=== PATIENT | female | born 1965 | race Caucasian/White ===

== ENCOUNTER 2017-09-08 08:48 | Emergency (ER) | payer OTHER ==
[2017-09-08 09:19] VITALS: BP 141/68
--- NOTE | 2017-09-08 10:28 | UC ---
Respiratory Complaint HPI - HPI Summary HPI Summary: Per sales manager "SORE THROAT, BILAT EARACHE, FEVER AND HEADACHE X3 DAYS. DENIES COUGH BUT STATES SHE'S PRODUCING ALOT OF MUCOUS. STATES SX GETTING WORSE AND UNABLE TO SWALLOW NOW D/T PAIN. TAKING TYLENOL PRN W/ NO RELIEF. CAN'T TAKE IBUPROFEN BC PT TAKING DICLOFENAC AND NO MUCINEX D/T ALLERGY." She is here with her . Dtr's bridal shower is today. significant ear pain , sinus pain. + PND. pain in upper back and neck as well. felt feverish but doesnt have a thermometer. - History of Current Complaint Chief Complaint: UCEar Stated Complaint: EARS/THROAT PAIN Time Seen by Provider: 09/08/17 10:13 - Allergies/Home Medications Allergies/Adverse Reactions: Allergies Allergy/AdvReac Type Severity Reaction Status Date / Time Dextromethorphan Allergy Severe Swelling Verified 09/08/17 09:05 [From Mucinex DM] Of Face,Lips,& Throat Guaifenesin [From Mucinex DM] Allergy Severe Swelling Verified 09/08/17 09:05 Of Face,Lips,& Throat Yellow Dye [From Mucinex DM] Allergy Severe Swelling Verified 09/08/17 09:05 Of Face,Lips,& Throat Home Medications: Home Medications Diclofenac [Zorvolex] 75 mg BID 09/08/17 [History Confirmed 09/08/17] Divalproex DR TAB(*) [Depakote DR TAB(*)] 500 mg QPM 09/08/17 [History Confirmed 09/08/17] Furosemide TAB* [Lasix TAB*] 40 mg DAILY 09/08/17 [History Confirmed 09/08/17] Levothyroxine TAB* [Synthroid 137 MCG TAB*] 137 mcg QAM 09/08/17 [History Confirmed 09/08/17] [place] Carbonate TAB* 1 tab BID 09/08/17 [History Confirmed 09/08/17] Potassium Chlor TAB* [Klor Con ER TAB 10 MEQ*] 1 tab DAILY 09/08/17 [History Confirmed 09/08/17] PMH/Surg Hx/FS Hx/Imm Hx Endocrine History: Hypothyroidism - Surgical History Surgical History: Yes Surgery Procedure, Year, and Place: LEFT thighx4-nola placed-. C-sectionx2. Hysterectomy - Family History Known Family History: Positive: Hypertension - Social History Alcohol Use: Occasionally Substance Use Type: None Smoking Status (MU): Never Smoked Tobacco - Immunization History Most Recent Influenza Vaccination: JUL 2017 Review of Systems Constitutional: Fever, Chills Skin: Negative Eyes: Negative ENT: Dental Pain, Sore Throat, Ear Ache, Nasal Discharge, Sinus Congestion, Sinus Pain/Tenderness Respiratory: Negative Cardiovascular: Negative Gastrointestinal: Negative Genitourinary: Negative Motor: Negative Neurovascular: Negative Musculoskeletal: Arthralgia, Other: - upper backl b/l and neck Neurological: Negative Psychological: Negative 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 tonsils surgically absent , Nasal congestion, TM bulging - right, left is nml., TM red, Other: - B/L maxillary and frontal tenderness b/l Dental Exam: Normal Neck exam: Normal Neck: Positive: Supple, Nontender, No Lymphadenopathy Respiratory Exam: Normal Respiratory: Positive: Lungs clear, Normal breath sounds, No respiratory distress, No accessory muscle use. Negative: Crackles, Rhonchi, Stridor, Wheezing Cardiovascular Exam: Normal Cardiovascular: Positive: RRR, No Murmur, Pulses Normal, Brisk Capillary Refill Abdomen Description: Positive: Nontender, Soft Musculoskeletal Exam: Normal Neurological Exam: Normal Psychological Exam: Normal Skin Exam: Normal Diagnostic Evaluation - Laboratory O2 Sat by Pulse Oximetry: 99 Respiratory Course/Dx - Differential Dx/Diagnosis Differential Diagnosis/HQI/PQRI: Bronchitis, Laryngitis, Lower Resp Infection, Sinusitis Provider Diagnoses: sinuistis, Rt OM Discharge - Discharge Plan Condition: Stable Disposition: HOME Prescriptions: Amoxicillin PO (*) [Amoxicillin 875 MG (*)] 875 mg PO BID #20 tab Patient Education Materials: Sinusitis (ED), Otitis Media (ED) Referrals: User,Conversion [Primary Care Provider] - Additional Instructions: Make sure to take a probiotic daily while on antibiotics to help prevent a potential complication of antibiotic use called c diff. Some well known brands that can be found OTC are florastor, [employer] and [employer]. Make sure to complete the entire prescription unless advised otherwise by your health care provider. Tylenol can be helpful. I also reviewed some stretches to help relieve the neck and upper back pain. Steroid nasal spray called flonase is OTC and can be helpful along with a humidifier.
== END 2017-09-08 10:36 | disposition home or self-care (01) ==
LOC: UCCORT 08:48
DX: J32.9 Chronic sinusitis, unspecified (principal); H66.93 Otitis media, unspecified, bilateral
CPT/HCPCS: 87651; 99202; G0463

== ENCOUNTER 2018-09-25 14:36 | Emergency (ER) | payer OTHER ==
[2018-09-25 15:06] VITALS: BP 152/78
--- NOTE | 2018-09-25 15:59 | UC ---
Dizzy HPI HPI Summary: 53-year-old woman comes in with a chief complaint of neck pain and dizziness. 4 days ago she woke up with the right sided neck pain. The neck pain is increased in intensity and is spread up into her right occiput's. 2 days ago she started becoming off-balance. Denies any spinning with dizziness. Also feels her right eye is blurry. No weakness or numbness. She is also now nauseous. NO Difficulty with speech. The neck pain has increased to 7 out of 10. She does have tramadol and that is not helping at all. Movement makes the neck pain worse. - History Of Current Complaint Chief Complaint: UCHeadache Stated Complaint: NECK/HEAD/SHOULDER/EAR PAIN Time Seen by Provider: 09/25/18 15:12 Pain Intensity: 7 - Allergies/Home Medications Allergies/Adverse Reactions: Allergies Allergy/AdvReac Type Severity Reaction Status Date / Time dextromethorphan Allergy Swelling Verified 09/25/18 14:57 [From Mucinex DM] Of Face,Lips,& Throat guaifenesin [From Mucinex DM] Allergy Swelling Verified 09/25/18 14:57 Of Face,Lips,& Throat Home Medications: Home Medications Fluticasone NASAL SPRAY 50MCG* [Flonase NASAL SPRAY 50MCG*] 1 spray INH ONCE PRN 09/25/18 [History Confirmed 09/25/18] Loratadine/Pseudoephedrine [Claritin-D 12 Hour Tablet] 1 tab PO DAILY PRN [History Confirmed 09/25/18] Melatonin 1 mg PO QPM 09/25/18 [History Confirmed 09/25/18] Tramadol HCl 50 mg PO ONCE PRN 09/25/18 [History Confirmed 09/25/18] PMH/Surg Hx/FS Hx/Imm Hx Endocrine History: Hypothyroidism - Surgical History Surgical History: Yes Surgery Procedure, Year, and Place: LEFT thighx4-nola placed-. C-sectionx2. Hysterectomy. left ear surgery 2010 - Family History Known Family History: Positive: Hypertension - Social History Alcohol Use: Occasionally Substance Use Type: None Smoking Status (MU): Never Smoked Tobacco - Immunization History Most Recent Influenza Vaccination: JUL 2017 Review of Systems Constitutional: Negative Skin: Negative Eyes: Blurred Vision ENT: Negative Respiratory: Negative Cardiovascular: Negative Gastrointestinal: Negative Motor: Decreased ROM - LEFT LEG IS CHRONIC Neurovascular: Negative Musculoskeletal: Other: - CHRONIC LEFT LEG WEAKNESS Neurological: Headache, Other - OFF BALANCE Psychological: Negative Is Patient Immunocompromised?: No All Other Systems Reviewed And Are Negative: Yes Physical Exam Triage Information Reviewed: Yes Appearance: Well-Appearing, Well-Nourished, Pain Distress - MILD, WORSE WITH HEAD MOVEMENT Vital Signs: Initial Vital Signs Temp 99.7 F 09/25/18 14:50 Pulse 93 09/25/18 14:50 Resp 18 09/25/18 14:50 BP 152/78 09/25/18 14:50 Pulse Ox 96 09/25/18 14:50 Vital Signs Reviewed: Yes Eye Exam: Normal Eyes: Positive: Conjunctiva Clear ENT: Positive: Other - LEFT TM NL RT TM BULGING WITH WHITE MATTER BEHIND IT. Negative: Nasal congestion, Nasal drainage Neck: Positive: Other: - Tender to palpation to the right of the spinous processes. There is no rash. This pain with any range of motion. Respiratory: Positive: Lungs clear, Normal breath sounds, No respiratory distress Cardiovascular: Positive: RRR Musculoskeletal: Positive: Other: - Through her is no facial droop. Arms have full strength finger-nose is normal. Patient is unable to do [id number] due to the chronic left leg weakness. There is no nystagmus. Neurological: Positive: Other: - Chronic left leg weakness Psychological Exam: Normal Psychological: Positive: Age Appropriate Behavior Skin Exam: Normal Dizzy Course/Dx - Course Course Of Treatment: Patient's RIGHT SIDED neck pain started 4 days ago and spread into the right occiput. In the last 2 days she started to feel off balance and nauseous. On examination her right eardrum does appear to be an otitis media. She has had ear surgery on that side so it could be scar tissue. Potential is that she has a right otitis media and has vertigo because of the otitis media. However she has no nystagmus and she describes being off balance rather than spending dizziness. Potential the neck pain is musculoskeletal from strain however with combined with the feeling off balance the potential for vertebral artery dissection is present. I told this to the patient and I recommended that she go to the emergency department. She declined a blistering report will go by private car. I discussed this with the Bella. - Differential Dx/Diagnosis Provider Diagnoses: RIGHT SIDED NECK PAIN. DIZZINESS. RT OTITIS MEDIA Discharge - Sign-Out/Discharge Documenting (check all that apply): Patient Departure All imaging exams completed and their final reports reviewed: No Studies - Discharge Plan Condition: Stable Disposition: HOME-RECOMMEND TO ED Prescriptions: Amoxicillin/Clavulanate TAB* [Augmentin TAB 875*] 875 mg PO BID #20 tab HYDROcodone/ACETAMIN 5-325 MG* [[place] 5-325 TAB*] 1 tab PO Q4H PRN #20 tab MDD 6 PRN Reason: Pain Meclizine HCl [Motion Sickness Relief] 25 mg PO Q6H PRN #15 tablet PRN Reason: Dizziness Patient Education Materials: Ear Infection (ED), Dizziness (ED), Acute Neck Pain (ED) Referrals: Kranthi Thacker MD [Primary Care Provider] - Additional Instructions: GO DIRECTLY TO THE EMERGENCY DEPARTMENT FOR FURTHER EVALUATION. - Billing Disposition and Condition Condition: STABLE Disposition: Home-Recommend to ED
== END 2018-09-25 16:23 | disposition home health service (06) ==
LOC: UCEAST 14:36
DX: M54.2 Cervicalgia (principal); R42 Dizziness and giddiness; H66.91 Otitis media, unspecified, right ear
CPT/HCPCS: 99212; G0463

== ENCOUNTER 2018-09-25 16:42 | Emergency (ER) | payer OTHER ==
[2018-09-25 18:18] LABS: ABS Basophils 0.1 10^3/ul (0-0.2); ABS Eosinophils 0.1 10^3/ul (0-0.6); ABS Lymphocytes 2.4 10^3/ul (1.0-4.8); ABS Monocytes 0.9 10^3/ul (0-0.8); ABS Neutrophils 7.6 10^3/ul (1.5-7.7); ABS Nucleated RBC 0 10^3/ul; Eosinophil % 1.2 % (0-6); Hematocrit 42 % (35-47); Hemoglobin 14.4 g/dl (12.0-16.0); Lymphocyte % 21.6 % (25-47); Mean Corpuscular HGB Conc 34 g/dl (31-36); Mean Corpuscular Hemoglobin 30 pg (27-31); Mean Corpuscular Volume 87 fL (80-97); Nucleated Red Blood Cells % 0; Platelet Count 221 10^3/ul (150-450); Red Blood Count 4.84 10^6/ul (4.00-5.40); Red Cell Distribution Width 13 % (10.5-15); White Blood Count 11.1 10^3/ul (3.5-10.8)
[2018-09-25 18:39] LABS: EGFR Non-African American 67.2 (>60)
[2018-09-25] MEDS ORDERED: Iohexol 350* (CONTRAST) 500 ML MDV IV ONE (19:01)
--- NOTE | 2018-09-25 19:28 | ED ---
Dizziness - HPI Summary HPI Summary: 53-year-old female presents with neck pain and dizziness for past 4 days. She states it started with right-sided of her neck. She states it radiate up to her head. Also states she's been very dizzy. She admits to some decrease in hearing in ear. She admits to sinus congestion. She did have 1 episode of blurry vision that has resolved. No weakness or numbness or tingling into her arms. No new injury injury. No fevers. No loss of bowel or bladder. Pain does not go down her back. No chest pressure or shortness breath. She never had this before. She states she just feels very wobbly. Does not feel like dizzy to one side. She states though she may be due to the fact that she has a prosthesis on right side. She denies any nausea vomiting. No difficulties with speech. She's been using tramadol which has not helped. Movement makes the neck pain worse. - History Of Current Complaint Chief Complaint: EDHeadache Stated Complaint: NECK AND SHOULDER PAIN Time Seen by Provider: 09/25/18 17:48 - Allergies/Home Medications Allergies/Adverse Reactions: Allergies Allergy/AdvReac Type Severity Reaction Status Date / Time dextromethorphan Allergy Swelling Verified 09/25/18 14:57 [From Mucinex DM] Of Face,Lips,& Throat guaifenesin [From Mucinex DM] Allergy Swelling Verified 09/25/18 14:57 Of Face,Lips,& Throat PMH/Surg Hx/FS Hx/Imm Hx Endocrine/Hematology History: Reports: Hx Thyroid Disease Denies: Hx Diabetes Cardiovascular History: Denies: Hx Hypertension History: Denies: Hx Renal Disease - Cancer History Cancer Type, 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 C-sectionx2. Hysterectomy. left ear surgery 2010 Infectious Disease History: No Infectious Disease History: Denies: Traveled Outside the [place] in Last 30 Days - Family History Known Family History: Positive: Hypertension - Social History Alcohol Use: Occasionally Substance Use Type: Reports: None Smoking Status (MU): Never Smoked Tobacco Review of Systems Negative: Fever Negative: Chest Pain Negative: Shortness Of Breath Positive: Myalgia - right side neck pain Neurological: Other - dizziness Positive: Headache All Other Systems Reviewed And Are Negative: Yes Physical Exam Triage Information Reviewed: Yes Vital Signs On Initial Exam: Initial Vitals Temp Pulse Resp BP Pulse Ox 99.5 F 93 15 161/84 97 09/25/18 16:44 09/25/18 16:44 09/25/18 16:44 09/25/18 16:44 09/25/18 16:44 Vital Signs Reviewed: Yes Appearance: Positive: Well-Appearing Skin: Positive: Warm, Dry Head/Face: Positive: Normal Head/Face Inspection Eyes: Positive: Normal, EOMI, TAMMY, Conjunctiva Clear, Other: - nystagmus present ENT: Positive: Normal ENT inspection, Pharynx normal, TMs normal Respiratory/Lung Sounds: Positive: Clear to Auscultation, Breath Sounds Present Cardiovascular: Positive: Normal, RRR Musculoskeletal: Positive: Normal Neurological: Positive: Sensory/Motor Intact, Alert, Oriented to Person Place, Time, CN Intact II-III, Normal Gait, Finger to Nose Psychiatric: Positive: Normal Diagnostics - Vital Signs Vital Signs Temp Pulse Resp BP Pulse Ox 09/25/18 16:44 99.5 F 93 15 161/84 97 - Laboratory Lab Results: Lab Results 09/25/18 09/25/18 09/25/18 Range/Units 18:07 18:07 18:07 WBC 11.1 H (3.5-10.8) 10^3/ul RBC 4.84 (4.00-5.40) 10^6/ul Hgb 14.4 (12.0-16.0) g/dl Hct 42 (35-47) % MCV 87 (80-97) fL MCH 30 (27-31) pg MCHC 34 (31-36) g/dl RDW 13 (10.5-15) % Plt Count 221 (150-450) 10^3/ul MPV 9.0 (7.4-10.4) um3 Neut % (Auto) 68.7 (38-83) % Lymph % (Auto) 21.6 L (25-47) % [place] % (Auto) 7.7 H (0-7) % Eos % (Auto) 1.2 (0-6) % Baso % (Auto) 0.8 (0-2) % Absolute Neuts (auto) 7.6 (1.5-7.7) 10^3/ul Absolute Lymphs (auto) 2.4 (1.0-4.8) 10^3/ul Absolute Monos (auto) 0.9 H (0-0.8) 10^3/ul Absolute Eos (auto) 0.1 (0-0.6) 10^3/ul Absolute Basos (auto) 0.1 (0-0.2) 10^3/ul Absolute Nucleated RBC 0 10^3/ul Nucleated RBC % 0 APTT 36.1 (26.0-36.3) seconds Sodium 137 (135-145) mmol/L Potassium 4.1 (3.5-5.0) mmol/L Chloride 101 (101-111) mmol/L Carbon Dioxide 27 (22-32) mmol/L Anion Gap 9 (2-11) mmol/L BUN 18 (6-24) mg/dL Creatinine 0.88 (0.51-0.95) mg/dL Est GFR ( Amer) 81.3 (>60) Est GFR (Non-Af Amer) 67.2 (>60) BUN/Creatinine Ratio 20.5 H (8-20) Glucose 92 (70-100) mg/dL Lactic Acid (0.5-2.0) mmol/L Calcium 10.1 (8.6-10.3) mg/dL Magnesium (1.9-2.7) mg/dL Total Bilirubin 0.50 (0.2-1.0) mg/dL AST 16 (13-39) U/L ALT 15 (7-52) U/L Alkaline Phosphatase 82 (34-104) U/L Troponin I (<0.04) ng/mL Total Protein 8.1 (6.4-8.9) g/dL Albumin 4.9 (3.2-5.2) g/dL Globulin 3.2 (2-4) g/dL Albumin/Globulin Ratio 1.5 (1-3) TSH (0.34-5.60) mcIU/mL 09/25/18 09/25/18 Range/Units 18:07 18:07 WBC (3.5-10.8) 10^3/ul RBC (4.00-5.40) 10^6/ul Hgb (12.0-16.0) g/dl Hct (35-47) % MCV (80-97) fL MCH (27-31) pg MCHC (31-36) g/dl RDW (10.5-15) % Plt Count (150-450) 10^3/ul MPV (7.4-10.4) um3 Neut % (Auto) (38-83) % Lymph % (Auto) (25-47) % [place] % (Auto) (0-7) % Eos % (Auto) (0-6) % Baso % (Auto) (0-2) % Absolute Neuts (auto) (1.5-7.7) 10^3/ul Absolute Lymphs (auto) (1.0-4.8) 10^3/ul Absolute Monos (auto) (0-0.8) 10^3/ul Absolute Eos (auto) (0-0.6) 10^3/ul Absolute Basos (auto) (0-0.2) 10^3/ul Absolute Nucleated RBC 10^3/ul Nucleated RBC % APTT (26.0-36.3) seconds Sodium (135-145) mmol/L Potassium (3.5-5.0) mmol/L Chloride (101-111) mmol/L Carbon Dioxide (22-32) mmol/L Anion Gap (2-11) mmol/L BUN (6-24) mg/dL Creatinine (0.51-0.95) mg/dL Est GFR ( Amer) (>60) Est GFR (Non-Af Amer) (>60) BUN/Creatinine Ratio (8-20) Glucose (70-100) mg/dL Lactic Acid 1.1 (0.5-2.0) mmol/L Calcium (8.6-10.3) mg/dL Magnesium 2.2 (1.9-2.7) mg/dL Total Bilirubin (0.2-1.0) mg/dL AST (13-39) U/L ALT (7-52) U/L Alkaline Phosphatase (34-104) U/L Troponin I 0.00 (<0.04) ng/mL Total Protein (6.4-8.9) g/dL Albumin (3.2-5.2) g/dL Globulin (2-4) g/dL Albumin/Globulin Ratio (1-3) TSH 2.53 (0.34-5.60) mcIU/mL Result Diagrams: 09/25/18 18:07 09/25/18 18:07 Lab Statement: Any lab studies that have been ordered have been reviewed, and results considered in the medical decision making process. - CT brain CT Interpretation Completed By: Radiologist Summary of CT Findings: no acute pathology cta CT Interpretation Completed By: Radiologist Summary of CT Findings: normal neck CTA - EKG No standard instances Cardiac Rate: NL EKG Rhythm: Sinus Rhythm Summary of EKG Findings: sinus rhythm Re-Evaluation - Re-Evaluation First Eval Change: Improved Comment: less dizzy after meclizine Dizzy Course/Dx - Course Course Of Treatment: 53-year-old female presents with neck pain and dizziness for past 4 days. She states it started with right-sided of her neck. She states it radiate up to her head. Also states she's been very dizzy. She admits to some decrease in hearing in ear. She admits to sinus congestion. She did have 1 episode of blurry vision that has resolved. No weakness or numbness or tingling into her arms. No new injury injury. No fevers. No loss of bowel or bladder. Pain does not go down her back. No chest pressure or shortness breath. She never had this before. She states she just feels very wobbly. Does not feel like dizzy to one side. She states though she may be due to the fact that she has a prosthesis on right side. She denies any nausea vomiting. No difficulties with speech. She's been using tramadol which has not helped. Movement makes the neck pain worse. On exam normal neuro exam. Right ear shows otitis media. pos HINTS test. CT brain normal. CTA neck and head normal. could be dizzy due to ear infection. will treat nexk pain as muscular with muscle relaxer and lidocaine patch. told to follow up with primary. patient understand and agrees with plan. - Diagnoses Differential Diagnosis/HQI/PQRI: CVA, Labyrinthitis, Other - sprain Provider Diagnoses: Neck pain Discharge - Sign-Out/Discharge Documenting (check all that apply): Patient Departure - Discharge Plan Condition: Good Disposition: HOME Prescriptions: Cyclobenzaprine TAB* [Flexeril 10 MG TAB*] 10 mg PO TID PRN #12 tab PRN Reason: Pain Lidocaine PATCH 5%* [Lidoderm 5% Patch*] 1 patch TRANSDERM DAILY #5 patch Patient Education Materials: Neck Pain (ED) Referrals: Kranthi Thacker MD [Primary Care Provider] - Additional Instructions: Take muscle relaxers three times a day Apply lidocaine patches to area for up to 12 hours in one 24 hour period Use Tylenol for pain every 6 hours ice/heat area, move as much as possible Follow up with primary within 5 days Return to ED if develop any new or worsening symptoms - Billing Disposition and Condition Condition: GOOD Disposition: Home
[2018-09-25] MEDS ORDERED: Meclizine TAB* 12.5 MG PO ONE (19:54)
--- NOTE | 2018-09-25 20:35 | RAD ---
EXAM: CT Head Without Intravenous Contrast EXAM DATE/TIME: 09/25/2018 8:07 PM CLINICAL HISTORY: 53 years old, female; Pain; Headache; Headache not specified TECHNIQUE: Axial computed tomography images of the head/brain without intravenous contrast. All CT scans at this facility use at least one of these dose optimization techniques: automated exposure control; mA and/or kV adjustment per patient size (includes targeted exams where dose is matched to clinical indication); or iterative reconstruction. COMPARISON: No relevant prior studies available. FINDINGS: Brain: Mild periventricular and subcortical low attenuation without adjacent mass effect. No acute ischemic changes, extra axial fluid collections, intraparenchymal hemorrhage, or midline shift. Ventricles: Normal. No ventriculomegaly. Bones/joints: Normal. No acute fracture. Sinuses: Normal as visualized. No acute sinusitis. Mastoid air cells: Normal as visualized. No mastoid effusion. Soft tissues: Normal. IMPRESSION: 1. No acute intracranial abnormality. 2. Mild chronic small vessel ischemic disease. To contact [facility] with a general question: [facility] - [phone] For direct physician to physician contact: Physician Hotline - [phone] [facility] ([facility] Facility ID #[id number])
--- NOTE | 2018-09-25 21:13 | RAD ---
EXAM: CT Angiography Head With Intravenous Contrast EXAM DATE/TIME: 09/25/2018 8:16 PM CLINICAL HISTORY: 53 years old, female; Pain; Headache; Additional info: Right sided neck pain, dizziness TECHNIQUE: Axial computed tomographic angiography images of the head with intravenous contrast using CT angiography protocol. All CT scans at this facility use at least one of these dose optimization techniques: automated exposure control; mA and/or kV adjustment per patient size (includes targeted exams where dose is matched to clinical indication); or iterative reconstruction. Coronal and sagittal reformatted images were created and reviewed. MIP reconstructed images were created and reviewed. CONTRAST: 40 ml of [id number] administered intravenously. COMPARISON: BRAIN WO CT BRAIN WO 09/25/2018 8:05 PM FINDINGS: Right internal carotid artery: Normal. Intracranial segment is patent with no significant stenosis. No aneurysm. Right anterior cerebral artery: Normal. No occlusion or significant stenosis. No aneurysm. Right middle cerebral artery: Normal. No occlusion or significant stenosis. No aneurysm. Right posterior cerebral artery: Normal. No occlusion or significant stenosis. No aneurysm. Right vertebral artery: Normal. No occlusion or significant stenosis. No aneurysm. Left internal carotid artery: Normal. Intracranial segment is patent with no significant stenosis. No aneurysm. Left anterior cerebral artery: Normal. No occlusion or significant stenosis. No aneurysm. Left middle cerebral artery: Normal. No occlusion or significant stenosis. No aneurysm. Left posterior cerebral artery: Normal. No occlusion or significant stenosis. No aneurysm. Left vertebral artery: Normal. No occlusion or significant stenosis. No aneurysm. Basilar artery: Normal. No occlusion or significant stenosis. No aneurysm. HEAD: Brain: No acute ischemic changes, extra axial fluid collections, intraparenchymal hemorrhage, or midline shift. No abnormal brain enhancement. IMPRESSION: Normal head CTA. EXAM: CT Angiography Neck With Intravenous Contrast EXAM DATE/TIME: 09/25/2018 8:16 PM CLINICAL HISTORY: 53 years old, female; Pain; Headache; Additional info: Right sided neck pain, dizziness TECHNIQUE: Axial computed tomographic angiography images of the neck with intravenous contrast using CT angiography protocol. All CT scans at this facility use at least one of these dose optimization techniques: automated exposure control; mA and/or kV adjustment per patient size (includes targeted exams where dose is matched to clinical indication); or iterative reconstruction. Coronal and sagittal reformatted images were created and reviewed. MIP reconstructed images were created and reviewed. CONTRAST: 40 ml of [id number] administered intravenously. COMPARISON: BRAIN WO CT BRAIN WO 09/25/2018 8:05 PM FINDINGS: VASCULATURE: Right common carotid artery: Normal. No significant stenosis. No dissection or occlusion. Right internal carotid artery: Normal. Extracranial segment is patent with no significant stenosis. No dissection or occlusion. Right external carotid artery: Normal. No occlusion or significant stenosis. Right vertebral artery: Normal. No significant stenosis. No dissection or occlusion. Left common carotid artery: Normal. No significant stenosis. No dissection or occlusion. Left internal carotid artery: Normal. Extracranial segment is patent with no significant stenosis. No dissection or occlusion. Left external carotid artery: Normal. No occlusion or significant stenosis. Left vertebral artery: Normal. No significant stenosis. No dissection or occlusion. NECK: Bones/joints: No acute fracture. Soft tissues: Normal. No significant soft tissue swelling. IMPRESSION: Normal neck CTA. COMMENT: Degree of carotid stenosis was determined using NASCET criteria. Mild: <50% stenosis. Moderate: 50-69% stenosis. Severe: 70-94% stenosis. Near occlusion: 95-99% stenosis. Occluded: 100% stenosis. To contact [employer] with a general question: [facility] - [phone] For direct physician to physician contact: Physician Hotline - [phone] [facility] ([facility] ID #[id number])
[2018-09-25] MEDS ORDERED: Ketorolac INJ* 30 MG/ML 1 ML VIAL IV PUSH ONE (21:17)
[2018-09-25] MEDS ORDERED: Lidocaine PATCH 5%* 1 PATCH TRANSDERM ONE (21:25)
[2018-09-25] MEDS ORDERED: Cyclobenzaprine TAB* 10 MG PO ONE (21:26)
[2018-09-25 21:55] VITALS: BP 146/93
[2018-09-26] MEDS ORDERED: Lidocaine Patch REMOVE* 1 NOTE MISC SCH (21:00)
== END 2018-09-25 21:54 | disposition home or self-care (01) ==
LOC: ED 16:42
DX: M54.2 Cervicalgia (principal); E07.9 Disorder of thyroid, unspecified
CPT/HCPCS: 36415; 70450; 70496; 70498; 80053; 83605; 83735; 84443; 84484; 85025; 85730; 93005; 96374; 96375; 99283; A9270-GY; J1885; Q9967